=== PATIENT | female | born 1940 | race Caucasian/White ===

== ENCOUNTER 2016-08-02 19:05 | Inpatient (IN) | payer MEDICARE ==
[2016-08-02 20:44] LABS: BASOPHIL 0.1 % (0-2); EOSINOPHIL 0.4 % (0-7); HCT 31.7 % (37.0-47.0); HGB 10.5 g/dl (12.5-16.0); LYMPHOCYTE 39.1 % (15-48); MCH 27.6 pg (25.0-31.0); MCHC 33.1 g/dL (32.0-36.0); MCV 83.2 fL (78.0-100.0); MONOCYTE 5.7 % (0-12); MPV 10.9 fL (6.0-9.5); NEUTROPHIL 54.7 % (41-80); PLT 395 K/uL (150-400); RBC 3.81 M/uL (4.20-5.40)
[2016-08-02 20:45] LABS: WBC 18.4 K/uL (4.0-10.5)
[2016-08-02 20:52] LABS: INR 1.18 (0.9-1.2); PROTHROMBIN TIME 14.6 SECONDS (11.7-14.0); PTT 34.8 SECONDS (23.2-31.4)
[2016-08-02 20:53] LABS: D-DIMER 1.25 ug/mLFEU (0.00-0.41)
[2016-08-02 21:00] LABS: LACTIC ACID 1.5 mmol/L (0.5-2.2)
[2016-08-02 21:02] LABS: TROPONIN T 0.011 ng/mL
[2016-08-02 21:03] LABS: ALBUMIN 3.4 g/dL (3.4-4.8); BILIRUBIN - TOTAL 0.2 mg/dL (0.1-1.0); CREATININE 1.1 mg/dL (0.5-1.0); GLOBULIN (CALCULATION) 3.8 g/dL (2.2-4.2); POTASSIUM 3.1 mmol/L (3.5-5.1); TOTAL PROTEIN 7.2 g/dL (6.4-8.3)
[2016-08-03 07:04] LABS: CKMB 2.13 ng/mL (0.97-4.94); TROPONIN T 0.031 ng/mL
[2016-08-03 07:06] LABS: ALBUMIN 3.5 g/dL (3.4-4.8); BILIRUBIN - TOTAL 0.2 mg/dL (0.1-1.0); CREATININE 1.1 mg/dL (0.5-1.0); GLOBULIN (CALCULATION) 3.3 g/dL (2.2-4.2); MAGNESIUM 1.89 mg/dL (1.40-2.10); POTASSIUM 3.8 mmol/L (3.5-5.1); TOTAL PROTEIN 6.8 g/dL (6.4-8.3)
[2016-08-03 07:42] LABS: BASOPHIL 0.1 % (0-2); EOSINOPHIL 0 % (0-7); HCT 30.9 % (37.0-47.0); HGB 10.4 g/dl (12.5-16.0); LYMPHOCYTE 11.2 % (15-48); MCH 27.6 pg (25.0-31.0); MCHC 33.7 g/dL (32.0-36.0); MONOCYTE 0.9 % (0-12); MPV 11.1 fL (6.0-9.5); NEUTROPHIL 87.8 % (41-80); PLT 342 K/uL (150-400); RBC 3.77 M/uL (4.20-5.40); RDW 13.9 % (11.5-14.0); WBC 9.1 K/uL (4.0-10.5)
[2016-08-03 08:00] LABS: INR 1.23 (0.9-1.2); PROTHROMBIN TIME 15.1 SECONDS (11.7-14.0); PTT 35.2 SECONDS (23.2-31.4)
[2016-08-04 06:50] LABS: BASOPHIL 0.1 % (0-2); EOSINOPHIL 0.3 % (0-7); HCT 27.8 % (37.0-47.0); HGB 9.2 g/dl (12.5-16.0); LYMPHOCYTE 18.2 % (15-48); MCH 27.5 pg (25.0-31.0); MCHC 33.1 g/dL (32.0-36.0); MONOCYTE 5.9 % (0-12); MPV 10.6 fL (6.0-9.5); NEUTROPHIL 75.5 % (41-80); PLT 350 K/uL (150-400); RBC 3.35 M/uL (4.20-5.40); RDW 13.9 % (11.5-14.0); WBC 10.9 K/uL (4.0-10.5)
[2016-08-04 07:18] LABS: ALBUMIN 3.2 g/dL (3.4-4.8); BILIRUBIN - TOTAL 0.2 mg/dL (0.1-1.0); CREATININE 1.1 mg/dL (0.5-1.0); GLOBULIN (CALCULATION) 3.5 g/dL (2.2-4.2); MAGNESIUM 2.05 mg/dL (1.40-2.10); POTASSIUM 3.5 mmol/L (3.5-5.1); TOTAL PROTEIN 6.7 g/dL (6.4-8.3)
[2016-08-05 05:40] LABS: HCT 30.3 % (37.0-47.0); HGB 9.8 g/dl (12.5-16.0); MCH 26.9 pg (25.0-31.0); MCHC 32.3 g/dL (32.0-36.0); MCV 83.2 fL (78.0-100.0); MPV 10.6 fL (6.0-9.5); RBC 3.64 M/uL (4.20-5.40); RDW 14.1 % (11.5-14.0); RETICULOCYTE COUNT 1.1 % (1.0-2.0); WBC 10.1 K/uL (4.0-10.5)
[2016-08-05 06:06] LABS: IRON 15 ug/dL (44-196); IRON % SATURATION 6 %SAT (20-50); POTASSIUM 3.5 mmol/L (3.5-5.1); TIBC (TOTAL IRON + UIBC) 232 U/L (228-428); UIBC 217 ug/dL (112-346)
[2016-08-05 06:22] LABS: FOLIC ACID (SERUM) 9.9 ng/mL (5.6-45.8)
[2016-08-06] MEDS ORDERED: CEFDINIR300 MG PO (13:59)
[2016-08-06] MEDS ORDERED: NIFEREX150 MG PO (14:00)
[2016-08-06] MEDS ORDERED: DUONEB 2.5-0.5M1 AMP INH (14:00)
[2016-08-06] MEDS ORDERED: TOPROL XL 50 MG50 MG PO (14:01)
[2016-08-06] MEDS ORDERED: JANUMET 50-5001 EACH PO (14:01)
[2016-08-06] MEDS ORDERED: CYMBALTA 30MG C30 MG PO (14:01)
[2016-08-06] MEDS ORDERED: ACETAMINOPHEN325 MG PO (14:02)
[2016-08-06] MEDS ORDERED: LANTUS **100 UNITS/ SQ (14:02)
[2016-08-06] MEDS ORDERED: EXFORGE 10-1601 EACH PO (14:03)
[2016-08-06] MEDS ORDERED: MUCINEX 600MG600 MG PO (14:04)
[2016-08-06] MEDS ORDERED: ALLEGRA ALLERG180 MG PO (14:04)
== END 2016-08-06 13:01 | disposition home health service (06) | DRG 871 ==
LOC: FER 19:05 → FMS 08-03 01:50
PROVIDERS: Emergency Medicine Emergency Medical Services; Nurse Practitioner Family; ADMIT Internal Medicine
DX: A41.9 Sepsis, unspecified organism (principal); J18.9 Pneumonia, unspecified organism; J96.01 Acute respiratory failure with hypoxia; E87.6 Hypokalemia; E11.9 Type 2 diabetes mellitus without complications; M25.472 Effusion, left ankle; M25.471 Effusion, right ankle; I10 Essential (primary) hypertension; M19.90 Unspecified osteoarthritis, unspecified site; F32.9 Major depressive disorder, single episode, unspecified; Z96.651 Presence of right artificial knee joint; Z96.612 Presence of left artificial shoulder joint; Z88.8 Allergy status to other drugs, medicaments and biological substances; Z79.4 Long term (current) use of insulin; Z79.899 Other long term (current) drug therapy
CPT/HCPCS: 36415; 36600; 71010; 71275; 80048; 80053; 80202; 82550; 82553; 82607; 82746; 82803; 82962; 83036; 83540; 83550; 83605; 83735; 83880; 84484; 85025; 85044; 85379; 85610; 85730; 87040; 93005; 93971; 94010; 94640; 94668; 94760; 94762; 97116; 97162; 97166; 97530-GP; 97535; J0456; J1815; J1940; J2916; J2930; J3370; J3420; Q9967